=== PATIENT | male | born 1980 | race Hispanic/Latino ===

== ENCOUNTER 2017-09-20 09:51 | Emergency (ER) | payer BC ==
[2017-09-20 10:09] VITALS: BP 140/96; TEMP 99.4
--- NOTE | 2017-09-20 10:34 | ED.PDOC ---
History of Present Illness - General Chief Complaint: Fever Stated Complaint: headache, throat burning Time Seen by Provider: 09/20/17 10:19 Source: patient Exam Limitations: no limitations - History of Present Illness Initial Comments: Andi Nails 37 y/o male seen in er today stating had flu taken tamiflu for the last 4 days but still with dry cough /dull frontal headache no blurry vision has been nauseated and had episode of vomiting after coughing.No chronic medical problem.Also feels like wheezing. Timing/Duration: other - 4 days Severity: moderate Improving Factors: nothing Worsening Factors: nothing Associated Symptoms: other - see hpi Allergies/Adverse Reactions: Allergies Iodine Allergy (Verified 09/20/17 10:10) peanuts Allergy (Uncoded 09/20/17 10:10) shrimp Allergy (Uncoded 09/20/17 10:10) Home Medications: Ambulatory Orders Naproxen [Naprosyn] 500 mg PO BID #60 tab 05/04/16 Tramadol HCl 50 mg PO TID PRN #15 tab 05/04/16 Albuterol Inhaler [Ventolin Hfa Inhaler] 108 mcg IN Q4HR PRN #1 inh 09/20/17 Amoxicillin [Amoxil] 1,000 mg PO BID 10 Days #40 cap 09/20/17 Review of Systems - Review of Systems Constitutional: States: no symptoms reported EENTM: States: no symptoms reported Respiratory: States: see HPI Cardiology: States: no symptoms reported Gastrointestinal/Abdominal: States: see HPI All other Systems: Reviewed and Negative, No Change from Baseline Past Medical History (General) - Patient Medical History Hx Hypertension: No Hx Diabetes: No Hx MRSA: No Surgical History: other - Vaccination History Hx Tetanus, Diphtheria Vaccination: No Hx Influenza Vaccination: No Hx Pneumococcal Vaccination: No - Social History Hx Tobacco Use: No Hx Alcohol Use: No Hx Substance Use: No Hx Substance Use Treatment: No Hx Depression: No - Female History Patient : No Family Medical History - Family History Mother Family History: Unknown Living Status: Unknown Physical Exam - Physical Exam General Appearance: Alert, Comfortable Eye Exam: bilateral normal Ears, Nose, Throat: hearing grossly normal, normal ENT inspection, pharyngeal erythema Neck: full range of motion, supple, normal inspection Respiratory: chest non-tender, no respiratory distress, no accessory muscle use , wheezing Cardiovascular/Chest: regular rate, rhythm, no murmur Gastrointestinal/Abdominal: non tender, soft, no organomegaly Extremity: non-tender, no pedal edema, no calf tenderness Neurologic: no motor/sensory deficits, alert, oriented x 3 Skin Exam: normal color, warm/dry Lymphatic: no adenopathy Progress - Progress Progress: 09/20/17 11:45 Laboratory Tests 09/20/17 10:47 Group A Strep DNA Positive - EKG/XRAY/CT XRAY: chest - coarse infiltrates right lung Departure - Departure Clinical Impression: Strep pharyngitis, Influenza A with respiratory manifestations Time of Disposition: 11:46 Disposition: Discharge to Home or Self Care Condition: Good Departure Forms: ED Discharge - Pt. Copy, Patient Portal Self Enrollment Instructions: DI for Influenza -- Adult, DI for Strep Throat, Strep Throat ( Alternative Therapy) Referrals: Shaheed Gallagher MD [Primary Care Provider] - 1-2 Weeks Prescriptions: Albuterol Inhaler [Ventolin Hfa Inhaler] 108 mcg IN Q4HR PRN #1 inh PRN Reason: Cough & Congestion Amoxicillin [Amoxil] 1,000 mg PO BID 10 Days #40 cap Home Medications: Ambulatory Orders Naproxen [Naprosyn] 500 mg PO BID #60 tab 05/04/16 Tramadol HCl 50 mg PO TID PRN #15 tab 05/04/16 Albuterol Inhaler [Ventolin Hfa Inhaler] 108 mcg IN Q4HR PRN #1 inh 09/20/17 Amoxicillin [Amoxil] 1,000 mg PO BID 10 Days #40 cap 09/20/17 Additional Instructions: May take over the counter cough /cold medicine-Mucinex DM one tablet am/pm for cough;Benadryl capsule 25 mg-take 2 capsules at bedtime;Tylenol 500 mg 1 tablet every 4 hours for pain/headache or ALEVE 1-2 tablets am/pm for pain;Drink extra fluids
[2017-09-20] MEDS ORDERED: IPRATROPIUM/ALBUTEROL 3 ML VIAL NEB ONE (10:45)
[2017-09-20] MEDS ORDERED: HYDROcodone 7.5MG/APAP 325MG 1 EA TAB PO ONE (10:46)
[2017-09-20] MEDS ORDERED: BENZONATATE PERLES 100 MG CAP PO ONE (10:46)
[2017-09-20 11:08] VITALS: O2SAT 98
--- NOTE | 2017-09-20 11:37 | RAD ---
EXAM DESCRIPTION: Chest,2 Views CLINICAL HISTORY: 37 years Male, cough COMPARISON: November 15, 2010 TECHNIQUE: PA and lateral views FINDINGS: Coarse lung markings have developed within right lung in interval. Possible pneumonitis. No alveolar consolidation or evidence of pleural effusion. Cardiac silhouette and mediastinum are unchanged IMPRESSION: Coarse lung markings have developed within right lung. Possible pneumonitis.. No alveolar consolidation Electronically signed by: Drake Bonilla 09/20/2017 11:36 AM [facility]
[2017-09-20] MEDS ORDERED: cefTRIAXone SODIUM 1 GM VIAL IM ONE (11:52)
[2017-09-20] MEDS ORDERED: LIDOCAINE 1% 10 ML VIAL INJ ONE (11:55)
== END 2017-09-20 12:17 | disposition home or self-care (01) ==
LOC: ER 09:51
DX: J10.1 Influenza due to other identified influenza virus with other respiratory manifestations (principal); J02.0 Streptococcal pharyngitis
CPT/HCPCS: 71046; 87651; 94640; J0696; J7620

== ENCOUNTER 2018-06-18 18:01 | Emergency (ER) | payer BC ==
--- NOTE | 2018-06-18 18:26 | ED.PDOC ---
History of Present Illness - General Chief Complaint: Headache Stated Complaint: headache Time Seen by Provider: 06/18/18 18:26 Source: patient Exam Limitations: no limitations - History of Present Illness Initial Comments: jaylyn Nails 37 y/o male with no chronic medical problems stated that for the last 3 weeks had dull headache occiput radiating to front of his head w/c comes spontaneously lasting for several minutes and sometimes feels dizzy able to go to work mostly on the computer,no nausea/vomiting ,blurry vision,diplopia,or weakness accompanying the headaches.Denies also fever,chills or weight loss. Timing/Duration: other - see hpi Severity: moderate Improving Factors: nothing Worsening Factors: nothing Associated Symptoms: other - see hpi Allergies/Adverse Reactions: Allergies Iodine Allergy (Verified 09/20/17 10:10) peanuts Allergy (Uncoded 09/20/17 10:10) shrimp Allergy (Uncoded 09/20/17 10:10) Home Medications: Ambulatory Orders Syvctkmykivsv-Aabc-Xsbhvktmne [Fioricet] 1 ea PO TID PRN #20 tab 06/18/18 Cefuroxime Axetil [Ceftin] 500 mg PO Q12H 10 Days #20 tablet 06/18/18 Review of Systems - Review of Systems Constitutional: States: no symptoms reported EENTM: States: no symptoms reported Respiratory: States: no symptoms reported Cardiology: States: no symptoms reported Genitourinary: States: no symptoms reported Skin: States: no symptoms reported Neurological: States: no symptoms reported Past Medical History (General) - Patient Medical History Hx Hypertension: No Hx Diabetes: No Hx MRSA: No Surgical History: other - lung decortication right-PNA - Vaccination History Hx Tetanus, Diphtheria Vaccination: No Hx Influenza Vaccination: No Hx Pneumococcal Vaccination: No - Social History Hx Tobacco Use: No Hx Alcohol Use: No Hx Substance Use: No Hx Substance Use Treatment: No Hx Depression: No - Female History Patient : No Family Medical History - Family History Mother Family History: Unknown Living Status: Unknown Hx Family Hypertension: Yes - dad Physical Exam - Physical Exam General Appearance: Alert, Comfortable, No apparent distress Eye Exam: bilateral normal Ears, Nose, Throat: hearing grossly normal, normal ENT inspection, nasal congestion Neck: non-tender, full range of motion, supple, normal inspection Respiratory: chest non-tender, lungs clear, normal breath sounds, no respiratory distress Cardiovascular/Chest: normal peripheral pulses, regular rate, rhythm, no murmur Peripheral Pulses: radial,right: 2+, radial,left: 2+ Gastrointestinal/Abdominal: normal bowel sounds, non tender, soft, no organomegaly Back Exam: no CVA tenderness, no vertebral tenderness Extremity: non-tender, no pedal edema, no calf tenderness Neurologic: tester food products II-XII nml as tested, no motor/sensory deficits, alert, oriented x 3 Skin Exam: normal color, warm/dry Progress - Progress Progress: 06/18/18 19:32 Vital Signs - 8 hr 06/18/18 18:27 Temperature 98.6 F Pulse Rate [ 83 Right Brachial] Respiratory 17 Rate Blood Pressure 156/90 [Right Arm] O2 Sat by Pulse 98 Oximetry - Results/Orders Results/Orders: Laboratory Results - last 24 hr 06/18/18 06/18/18 18:56 18:56 WBC 6.1 RBC 4.81 Hgb 15.1 Hct 42.5 MCV 88.4 MCH 31.3 H MCHC 35.5 RDW 12.6 Plt Count 233 MPV 9.2 Absolute Neuts (auto) 3.00 Absolute Lymphs (auto) 2.30 Absolute Monos (auto) 0.50 Absolute Eos (auto) 0.20 Absolute Basos (auto) 0.10 Neutrophils % 50.2 Lymphocytes % 37.5 Monocytes % 8.2 Eosinophils % 3.2 Basophils % 0.9 Sodium 136 Potassium 3.7 Chloride 103 Carbon Dioxide 27 Anion Gap 9.7 L BUN 14 Creatinine 0.82 BUN/Creatinine Ratio 17.1 Random Glucose 125 H Serum Osmolality 273.9 L Calcium 9.2 Total Bilirubin < 0.2 L AST 17 ALT 27 Alkaline Phosphatase 62 Serum Total Protein 7.5 Albumin 4.4 Globulin 3.1 Albumin/Globulin Ratio 1.4 discuss test result with patient nothing acute and told him the only findings on his physical is his nasal congestion - EKG/XRAY/CT CT Ordered: Yes - head-no acute intracranial abnormality Departure - Departure Clinical Impression: Headache Qualifiers: Headache type: unspecified Headache chronicity pattern: unspecified pattern Intractability: not intractable Qualified Code(s): R51 - Headache Sinusitis Qualifiers: Sinusitis location: unspecified location Chronicity: unspecified Qualified Code (s): J32.9 - Chronic sinusitis, unspecified Time of Disposition: 19:46 Disposition: Discharge to Home or Self Care Condition: Good Departure Forms: ED Discharge - Pt. Copy, Patient Portal Self Enrollment Instructions: DI for Headache, DI for Sinusitis Referrals: Shaheed Gallagher MD [Primary Care Provider] - 1-2 Weeks Prescriptions: Icupcahyatmoa-Uaay-Idcjsnyzch [Fioricet] 1 ea PO TID PRN #20 tab PRN Reason: Headache/Migraine Pain Cefuroxime Axetil [Ceftin] 500 mg PO Q12H 10 Days #20 tablet Home Medications: Ambulatory Orders Dqeivtwqwczax-Ncmj-Rynolcurjo [Fioricet] 1 ea PO TID PRN #20 tab 06/18/18 Cefuroxime Axetil [Ceftin] 500 mg PO Q12H 10 Days #20 tablet 06/18/18 Additional Instructions: Use Afrin nose spray-2 sprays each nose am/pm 3 days on 3 days off as needed for nasal congestion;May use over the counter Zyrtec -10mg one tablet at bedtime ;Aleve 1-2 tablets am/pm also for pain/headache;Follow up with primary Md 22 June 2018 if not any better;Return to ER as needed
[2018-06-18 18:40] VITALS: TEMP 98.6; O2SAT 98
--- NOTE | 2018-06-18 19:20 | CT ---
EXAM DESCRIPTION: Head CLINICAL HISTORY: headaches COMPARISON: None Available TECHNIQUE: Contiguous axial CT images of the head were obtained. Coronal and sagittal reconstructions were created from the axial data. This exam was performed according to our departmental dose-optimization program, which includes automated exposure control, adjustment of the mA and/or kV according to patient size and/or use of iterative reconstruction technique. FINDINGS: There is no evidence of acute mass, mass effect, midline shift or hemorrhage. The ventricles and extra-axial CSF spaces are unremarkable. The brain parenchyma appears normal for the patient's age. No acute abnormalities of the bones is seen. IMPRESSION: No acute intracranial abnormality. Electronically signed by: Kwabena Ponce 06/18/2018 7:18 PM CDT
[2018-06-18] MEDS ORDERED: OXYMETAZOLINE NASAL SPRAY 15 ML BTTL BNAS PRN (19:46)
[2018-06-18] MEDS ORDERED: CEFUROXIME AXETIL TAB 250 MG TAB PO ONE (19:46)
[2018-06-18] MEDS ORDERED: ACETAMINOPHEN-CAFF-BUTALBITAL 1 EA TAB PO PRN (19:47)
[2018-06-18 20:15] VITALS: BP 150/89
== END 2018-06-18 20:15 | disposition home or self-care (01) ==
LOC: ER 18:01
DX: R51 Headache (principal); J32.9 Chronic sinusitis, unspecified; Z91.041 Radiographic dye allergy status

== ENCOUNTER → 2019-12-20 | Outpatient (CLI) | payer BC | LOC: GMAJ 16:13 | PROVIDERS: ATTEND Family Medicine | DX: N41.0 Acute prostatitis (principal) ==

== ENCOUNTER → 2019-12-30 | Outpatient (CLI) | payer BC ==
--- NOTE | 2019-12-30 14:28 | US ---
EXAM DESCRIPTION: Abdomen,Complete CLINICAL HISTORY: RUQ ABD TENDERNESS COMPARISON: None available. FINDINGS: Aorta: Nonaneurysmal. IVC: Visualized portions normal. Ascites: None. Pancreas: Largely obscured by overlying bowel gas and not well evaluated. Liver: No mass or biliary duct dilation. Liver size is not evaluated on this exam. Physiologic flow is noted in the main portal vein. The liver appears diffusely hyperechoic suggestive of fatty infiltration. Gallbladder/Common Duct: No stones, wall thickening, pericholecystic fluid or common duct dilation. Right Kidney: No stones, hydronephrosis, atrophy or mass. Spleen: No splenomegaly or mass. Left Kidney: No stones, hydronephrosis, atrophy or mass. IMPRESSION: Diffuse fatty infiltration of the liver, otherwise unremarkable exam. Electronically signed by: Tyler Don MD 12/30/2019 2:26 PM CDT
== END ==
LOC: US 13:24
PROVIDERS: ATTEND Family Medicine
DX: K76.0 Fatty (change of) liver, not elsewhere classified (principal)

== ENCOUNTER → 2020-06-19 | Outpatient (CLI) | payer OTHER | LOC: YCFC.O 10:34 | PROVIDERS: ATTEND Family Medicine | DX: Z03.818 Encounter for observation for suspected exposure to other biological agents ruled out (principal); Z20.828 Contact with and (suspected) exposure to other viral communicable diseases ==

== ENCOUNTER → 2020-09-18 | Outpatient (CLI) | payer OTHER ==
--- NOTE | 2020-09-18 11:08 | CT ---
EXAM DESCRIPTION: CT head without contrast CLINICAL HISTORY: THUNDERCLAP HEADACHE COMPARISON: Previous CT of the head June 18, 2018 TECHNIQUE: Noncontrast head CT was performed with routine protocol. FINDINGS: Normal gutierrez-white matter differentiation. Ventricles and sulci are normal for age. No change compared to the previous study. No high density hemorrhage, focal edema or shift of the midline. No sulcal effacement. Normal orbital contents. Basilar cisterns appear clear. Intact calvarium with no fracture or lytic lesion. Normal aeration of tympanic cavities and mastoid air cells. No fluid levels in the paranasal sinuses. Nodular mucosal thickening inferior left maxillary sinus with patchy mucosal thickening of the ethmoid air cells. Skull base appears intact. Symmetrical internal auditory canals. IMPRESSION: No acute intracranial pathologic process. This exam was performed according to our departmental dose-optimization program, which includes automated exposure control, adjustment of the mA and/or kV according to patient size and/or use of iterative reconstruction technique. Total DLP equals 967.47 mGycm. Electronically signed by: Jovanny Garcia MD 09/18/2020 11:06 AM [facility]
--- NOTE | 2020-09-18 11:09 | RAD ---
EXAM DESCRIPTION: Chest x-ray,2 Views CLINICAL HISTORY: RESPIRATORY CRACKLES COMPARISON: Previous chest x-ray September 20, 2017 TECHNIQUE: PA/lateral FINDINGS: There is no acute appearing cardiac or pulmonary abnormality. Heart size is normal with normal pulmonary vascularity. No pleural effusion or pneumothorax. Lungs are clear with no consolidating infiltrate. Lateral view shows intact sternum and T-spine. IMPRESSION: No acute process is identified in the chest. Electronically signed by: Jovanny Garcia MD 09/18/2020 11:[address] [facility]
== END ==
LOC: RAD 10:23
PROVIDERS: ATTEND Family Medicine
DX: R09.89 Other specified symptoms and signs involving the circulatory and respiratory systems (principal); G44.53 Primary thunderclap headache